=== PATIENT | male | born 1980 | race Caucasian/White ===

== ENCOUNTER 2020-02-10 00:40 | Emergency (ER) | payer OTHER ==
[~2020-02-10] VITALS: Ht 172.7 cm; Wt 86.2 kg
--- NOTE | 2020-02-10 00:47 | NUR ---
PT [facility]. TAKEN TO BED 7
[2020-02-10 00:48] VITALS: BP 147/62
--- NOTE | 2020-02-10 00:50 | NUR ---
Dr. Cohen examining patient.
--- NOTE | 2020-02-10 00:57 | NUR ---
X-Ray at bedside.
--- NOTE | 2020-02-10 01:11 | NUR ---
PT IS [id number]. XRAY DONE.
--- NOTE | 2020-02-10 01:19 | NUR ---
PTS RIGHT HAND WAS PLACED IN A GUTTER SPLINT. PTS [facility] [place].
--- NOTE | 2020-02-10 01:49 | NUR ---
Patient discharged with v/s stable. Written and verbal after care instructions given and explained. Patient alert, oriented and verbalized understanding of instructions. Ambulatory with steady gait. All questions addressed prior to discharge. ID band removed. Patient advised to follow up with PMD. Rx of motrin, and norco given. Patient educated on indication of medication including possible reaction and side effects. Opportunity to ask questions provided and answered.
== END 2020-02-10 01:49 | disposition home or self-care (01) ==
LOC: MED 00:40
DX: S62.614A Displaced fracture of proximal phalanx of right ring finger, initial encounter for closed fracture (principal); R03.0 Elevated blood-pressure reading, without diagnosis of hypertension; W22.8XXA Striking against or struck by other objects, initial encounter; Y93.89 Activity, other specified; Y92.89 Other specified places as the place of occurrence of the external cause; Y99.8 Other external cause status
CPT/HCPCS: 29125; 73130; 99283; Q0092